=== PATIENT | female | born 1995 | race Caucasian/White ===

== ENCOUNTER 2016-06-02 15:32 | Emergency (ER) | payer OTHER ==
[~2016-06-02] VITALS: Ht 157.5 cm; Wt 62.3 kg
[2016-06-02 15:35] VITALS: TEMP 36.7; Ht 157.5 cm; Wt 62.3 kg
[2016-06-02 17:35] LABS: BASO % 0.2 %; BASO ABS # 0.03 K/uL (0-0.2); COMPLETE YES; EOS % 0.6 %; HEMATOCRIT 38.7 % (37-47); IG% 0.4 %; LYMPH % 15.8 %; LYMPH ABS # 2.72 K/uL (1.2-3.4); MEAN CORPUSCULAR HEMOGLOBIN 31.1 pg (25-34); MEAN CORPUSCULAR HGB CONC 35.4 g/dl (32-36); MEAN PLATELET VOLUME 9.8 fL (7.4-10.4); MONO % 6.5 %; NEUT % 76.5 %; PLATELET COUNT 342 K/uL (130-400); WHITE BLOOD COUNT 17.18 K/uL (4.8-10.8)
[2016-06-02 17:52] LABS: ALT/SGPT 34 U/L (12-78); AST/SGOT 18 U/L (15-37); BLOOD UREA NITROGEN 8 mg/dl (7-18); BUN/CREATININE RATIO 13.9 (10-20); CARBON DIOXIDE 27 mmol/L (21-32); CHLORIDE 103 mmol/L (98-107); CREATININE 0.58 mg/dl (0.60-1.20); GLUCOSE 79 mg/dl (70-99); POTASSIUM 3.5 mmol/L (3.5-5.1); SODIUM 139 mmol/L (136-145)
[2016-06-02 17:55] LABS: ALKALINE PHOSPHATASE 69 U/L (45-117)
[2016-06-02] MEDS ORDERED: PRENTAB26 PO (18:17)
--- NOTE | 2016-06-02 18:22 | DIAGNOSTIC IMAGING REPORT ---
ULTRASOUND OF THE PELVIS CLINICAL HISTORY: . Vaginal bleeding.. COMPARISON STUDY: No priors. TECHNIQUE: Real-time, grayscale, and color flow sonography of the pelvis is performed transabdominally. Images are reviewed in the transverse and longitudinal planes. The patient declined the endovaginal examination. FINDINGS: Uterus: The gravid uterus is normal in size and slightly heterogeneous in echotexture, measuring 9.0 x 5.0 x 6.8 cm. Gestation: There is a single live intrauterine gestation with an aspirated heart rate of 165 bpm. The crown-rump length measures 1.19 cm, corresponding to an assessment age of 7 weeks 3 days. The mean gestational sac measures 3.24 cm, corresponding to estimated age of 8 weeks 2 days. A yolk sac is noted. Ovaries: The ovaries are normal in size and morphology. The right ovary measures 3.1 x 1.9 x 2.1 cm and the left ovary measures 2.7 x 1.5 x 2.3 cm. Small ovarian follicles are noted. Normal Doppler waveforms are shown within both ovaries. Pelvis: There is no free fluid in the cul-de-sac. No concerning adnexal lesion is seen. IMPRESSION: 1. The patient declined the endovaginal examination 2. There is a single live uterine gestation with an estimated age of 7 weeks 3 days by crown-rump length measurement. 3. The ovaries are normal as visualized. Electronically signed by: Sadiq Larson M.D. 06/02/2016 6:21 PM Dictated Date/Time: 06/02/2016 6:18 PM
[2016-06-02 18:46] LABS: URINE APPEARANCE CLEAR (CLEAR); URINE BILIRUBIN NEG (NEG); URINE COLOR YELLOW; URINE EPITHELIAL CELL AUTO 20-30 /lpf (0-5); URINE NITRITE POS (NEG); URINE PH 6.5 (4.5-7.5); URINE SPECIFIC GRAVITY 1.009 (1.000-1.030); UROBILINOGEN NEG (NEG); ZZUR CULT IF INDIC CLEAN CATCH YES
[2016-06-02 18:59] LABS: MANUAL MICROSCOPIC REQUIRED? NO; REVIEW REQ? NO
[2016-06-02] MEDS ORDERED: NITR-5 PO (19:29)
[2016-06-02] MEDS ORDERED: NITROFURANTOIN MONOHYDRATE 100 MG CAP PO ONE (19:30)
[2016-06-02] MEDS ORDERED: CEFTRIAXONE SOD INJ 1 GM ADDVIAL IV STA (19:30)
--- NOTE | 2016-06-02 19:30 | EMERGENCY ROOM VISIT NOTE ---
History Report prepared by Jenny: Barney Pritchard Under the Supervision of: Dr. Marc Villarreal D.O. First contact with patient: 16:42 Chief Complaint: ED VAG BLEEDING Stated Complaint: APPROX. 8 WKS ; SPOTTING, PAIN History of Present Illness The patient is a 20 year old female who presents to the Emergency Room with complaints of persistent abdominal pain that started a few days ago. She describes the discomfort as cramping. She also complains of spotting that started today and burning with urination. She is approximately 8 weeks and this is her first . Her last normal menstrual period was April 04. She has her first gynecology appointment this Thursday in [place]. She has taken 2 home tests and presented to [facility] prior to arrival who recommended she present to the ED for further evaluation. Source of History: patient Onset: a few days ago Position: abdomen Quality: cramping Timing: other (persistent) Associated Symptoms: + urinary symptoms (burning with urination) Note: Other associated symptoms: spotting Review of Systems See HPI for pertinent positives & negatives. A total of 10 systems reviewed and were otherwise negative. Past Medical & Surgical Medical Problems: (1) Bleeding (2) Skin problem (3) Urinary problem Family History FH: diabetes mellitus FH: hypertension Social History Smoking Status: Never Smoker Alcohol Use: none Marital Status: in relationship Occupation Status: employed, student, [employer] student Current/Historical Medications Scheduled Multivit/Min/Iron/Fol Ac/Pren ( Vitamin), 1 TAB PO DAILY Nitrofurantoin Monohyd Macrocr (Macrobid), 100 MG PO BID Allergies Coded Allergies: No Known Allergies (Unverified , 06/02/16) Physical Exam Vital Signs Date Time Temp Pulse Resp B/P Pulse Ox O2 Delivery O2 Flow Rate FiO2 06/02/16 18:22 85 18 96/49 100 Room Air 06/02/16 15:35 36.7 77 18 109/65 99 Physical Exam CONSTITUTIONAL/VITAL SIGNS: Reviewed / noted above. GENERAL: Non-toxic in appearance. INTEGUMENTARY: Warm, dry, and Louise. HEAD: Normocephalic. EYES: without scleral icterus or trauma. ENT/OROPHARYNX: clear and moist. LYMPHADENOPATHY/NECK: Is supple without lymphadenopathy or meningismus. RESPIRATORY: Lungs clear and equal. CARDIOVASCULAR: Regular rate and rhythm. GI/ABDOMEN: Soft and nontender. No organomegaly or pulsatile mass. No rebound or guarding. Normal bowel sounds. EXTREMITIES: Warm and well perfused. BACK: No CVA tenderness. NEUROLOGICAL: Intact without focal deficits. PSYCHIATRIC: normal affect. MUSCULOSKELETAL: Normally developed with good muscle tone. Medical Decision & Procedures ER Provider Diagnostic Interpretation: X ray results and stated below per my interpretation and radiologist interpretation. Other radiology results and stated below per my review and radiologist interpretation: ULTRASOUND OF THE PELVIS CLINICAL HISTORY: . Vaginal bleeding.. COMPARISON STUDY: No priors. TECHNIQUE: Real-time, grayscale, and color flow sonography of the pelvis is performed transabdominally. Images are reviewed in the transverse and longitudinal planes. The patient declined the endovaginal examination. FINDINGS: Uterus: The gravid uterus is normal in size and slightly heterogeneous in echotexture, measuring 9.0 x 5.0 x 6.8 cm. Gestation: There is a single live intrauterine gestation with an aspirated heart rate of 165 bpm. The crown-rump length measures 1.19 cm, corresponding to an assessment age of 7 weeks 3 days. The mean gestational sac measures 3.24 cm, corresponding to estimated age of 8 weeks 2 days. A yolk sac is noted. Ovaries: The ovaries are normal in size and morphology. The right ovary measures 3.1 x 1.9 x 2.1 cm and the left ovary measures 2.7 x 1.5 x 2.3 cm. Small ovarian follicles are noted. Normal Doppler waveforms are shown within both ovaries. Pelvis: There is no free fluid in the cul-de-sac. No concerning adnexal lesion is seen. IMPRESSION: 1. The patient declined the endovaginal examination 2. There is a single live uterine gestation with an estimated age of 7 weeks 3 days by crown-rump length measurement. 3. The ovaries are normal as visualized. Electronically signed by: Sadiq Larson M.D. 06/02/2016 6:21 PM Dictated Date/Time: 06/02/2016 6:18 PM Laboratory Results 06/02/16 17:25 Red Blood Count 4.40, Mean Corpuscular Volume 88.0, Mean Corpuscular Hemoglobin 31.1, Mean Corpuscular Hemoglobin Concent 35.4, Mean Platelet Volume 9.8, Neutrophils (%) (Auto) 76.5, Lymphocytes (%) (Auto) 15.8, Monocytes (%) (Auto) 6.5, Eosinophils (%) (Auto) 0.6, Basophils (%) (Auto) 0.2, Neutrophils # (Auto) 13.13, Lymphocytes # (Auto) 2.72, Monocytes # (Auto) 1.12, Eosinophils # (Auto) 0.11, Basophils # (Auto) 0.03 06/02/16 17:25 Test 06/02/16 17:25 06/02/16 18:00 White Blood Count 17.18 K/uL (4.8-10.8) Red Blood Count 4.40 M/uL (4.2-5.4) Hemoglobin 13.7 g/dL (12.0-16.0) Hematocrit 38.7 % (37-47) Mean Corpuscular Volume 88.0 fL (80-100) Mean Corpuscular Hemoglobin 31.1 pg (25-34) Mean Corpuscular Hemoglobin Concent 35.4 g/dl (32-36) Platelet Count 342 K/uL (130-400) Mean Platelet Volume 9.8 fL (7.4-10.4) Neutrophils (%) (Auto) 76.5 % Lymphocytes (%) (Auto) 15.8 % Monocytes (%) (Auto) 6.5 % Eosinophils (%) (Auto) 0.6 % Basophils (%) (Auto) 0.2 % Neutrophils # (Auto) 13.13 K/uL (1.4-6.5) Lymphocytes # (Auto) 2.72 K/uL (1.2-3.4) Monocytes # (Auto) 1.12 K/uL (0.11-0.59) Eosinophils # (Auto) 0.11 K/uL (0-0.5) Basophils # (Auto) 0.03 K/uL (0-0.2) RDW Standard Deviation 39.6 fL (36.4-46.3) RDW Coefficient of Variation 12.3 % (11.5-14.5) Immature Granulocyte % (Auto) 0.4 % Immature Granulocyte # (Auto) 0.07 K/uL (0.00-0.02) Anion Gap 9.0 mmol/L (3-11) Est Creatinine Clear Calc Drug Dose 134.3 ml/min Estimated GFR () > 150.0 Estimated GFR (Non- 132.7 BUN/Creatinine Ratio 13.9 (10-20) Calcium Level 9.0 mg/dl (8.5-10.1) Total Bilirubin 0.3 mg/dl (0.2-1) Aspartate Amino Transf (AST/SGOT) 18 U/L (15-37) Alanine Aminotransferase (ALT/SGPT) 34 U/L (12-78) Alkaline Phosphatase 69 U/L (45-117) Total Protein 7.3 gm/dl (6.4-8.2) Albumin 3.7 gm/dl (3.4-5.0) Globulin 3.6 gm/dl (2.5-4.0) Albumin/Globulin Ratio 1.0 (0.9-2) Human Chorionic Gonadotropin, Quant 38301 mIU/mL Urine Color YELLOW Urine Appearance CLEAR (CLEAR) Urine pH 6.5 (4.5-7.5) Urine Specific [place] 1.009 (1.000-1.030) Urine Protein NEG (NEG) Urine Glucose (UA) NEG (NEG) Urine Ketones NEG (NEG) Urine Occult Blood 2+ (NEG) Urine Nitrite POS (NEG) Urine Bilirubin NEG (NEG) Urine Urobilinogen NEG (NEG) Urine Leukocyte Esterase MODERATE (NEG) Urine WBC (Auto) >30 /hpf (0-5) Urine RBC (Auto) >30 /hpf (0-4) Urine Hyaline Casts (Auto) 1-5 /lpf (0-5) Urine Epithelial Cells (Auto) 20-30 /lpf (0-5) Urine Bacteria (Auto) 4+ (NEG) Laboratory results as stated above per my review. ED Course 164: Previous medical records were reviewed. The patient was evaluated in room C4. A complete history and physical examination was performed. 193: Ordered Macrobid Cap 100 mg PO, Rocephin Inj 1 gm IV. 1934: On reevaluation, the patient is resting comfortably. I discussed the results and findings with the patient. She verbalized agreement of the treatment plan. The patient was discharged home. Medical Decision Differential diagnosis: Etiologies such as ectopic , dysfunction uterine bleeding, bleeding dyscrasia, trauma, infection, as well as others were entertained. This is a 20-year-old female who presents to the ED with a chief complaint of mild abdominal cramps and some spotting. The patient is a presents stating that she is about 8 weeks . Last menstrual period was April 04. The patient noticed some spotting today as well as had some urinary symptoms earlier today. She states that her credit administrator is in [place]. She has an appointment with them this Thursday. Her vital signs are normal. The patient's exam was unremarkable. An ultrasound reveals a 7 week 3 day fetus. White blood cell count 17, complete metabolic panel was normal. Blood type is O +. Urinalysis suggests urinary tract infection. The patient was placed on Macrobid. She was given IM Rocephin here. She is felt to be stable for discharge and outpatient follow-up. Impression Primary Impression: UTI (urinary tract infection) Additional Impression: First trimester Scribe Attestation The scribe's documentation has been prepared under my direction and personally reviewed by me in its entirety. I confirm that the note above accurately reflects all work, treatment, procedures, and medical decision making performed by me. Departure Information Dispostion Home / Self-Care Prescriptions Nitrofurantoin Monohyd Macrocr (Macrobid) 100 Mg Cap 100 MG PO BID, #14 CAP Prov: Marc Villarreal D.O. 06/02/16 Referrals No Doctor, Assigned (PCP) Forms HOME CARE DOCUMENTATION FORM, IMPORTANT VISIT INFORMATION, WORK / SCHOOL INSTRUCTIONS Patient Instructions ED UTI Cystitis Female, My [facility] Additional Instructions Your test results show that you have a urinary tract infection. Ultrasound shows that you are 7 weeks and 3 days . Macrobid as prescribed. Follow-up with your braddisher as scheduled this week. Problem Qualifiers
[2016-06-02] MEDS ORDERED: CEFTRIAXONE SOD 350MG/ML 1 GM VIAL IM STA (19:37)
[2016-06-02 19:58] VITALS: BP 111/53; PULSE 96; O2SAT 100
--- NOTE | 2016-06-04 11:07 | Pharmacy Progress Note ---
ED Pharmacist Culture FollowUp Date of Service: Jun 04, 2016. Patient was sent home with a prescription for Macrobid 100mg PO BID x 7 days, which should cover the E coli growing from the patient's URINE culture. She is approx 7-[address] Belcher had already reviewed this culture and wished to continue with current therapy. Nitrofurantoin is Category B.
== END 2016-06-02 20:21 | disposition home or self-care (01) ==
LOC: C.EDB 15:34 → C.EDC 20:21
DX: O23.41 Unspecified infection of urinary tract in pregnancy, first trimester (principal); Z3A.08 8 weeks gestation of pregnancy; Z83.3 Family history of diabetes mellitus; Z82.49 Family history of ischemic heart disease and other diseases of the circulatory system